=== PATIENT | male | born 1970 | race Caucasian/White ===

== ENCOUNTER 2017-01-03 00:20 | Emergency (ER) | payer MEDICARE, OTHER ==
[2017-01-03 02:52] LABS: HEMOGLOBIN 16.9 gm/dl (14.0-17.5); RED BLOOD COUNT 5.53 M/UL (4.20-5.50); WHITE BLOOD COUNT 7.3 K/UL (4.5-11.0)
[2017-01-03 03:11] LABS: BUN/CREATININE RATIO 12 (0-10)
== END 2017-01-03 06:20 | disposition home or self-care (01) ==
LOC: ER1 00:20
PROVIDERS: Family Medicine
DX: F41.9 Anxiety disorder, unspecified (principal); R06.00 Dyspnea, unspecified
CPT/HCPCS: 36415; 80053; 82550; 82553; 83874; 83880; 84484; 85025; 93005; 99285

== ENCOUNTER 2017-01-15 04:14 | Emergency (ER) | payer MEDICARE, OTHER ==
[2017-01-15 06:52] LABS: RED BLOOD COUNT 5.51 M/UL (4.20-5.50); WHITE BLOOD COUNT 9.1 K/UL (4.5-11.0)
[2017-01-15 07:28] LABS: BUN/CREATININE RATIO 13 (0-10)
== END 2017-01-15 09:50 | disposition home or self-care (01) ==
LOC: ER1 04:14
PROVIDERS: Family Medicine
DX: R10.9 Unspecified abdominal pain (principal)
CPT/HCPCS: 36415; 71020; 80053; 82550; 82553; 83690; 83874; 84484; 85025; 93005; 99284

== ENCOUNTER 2017-01-16 13:10 | Emergency (ER) | payer MEDICARE, OTHER ==
[2017-01-16 14:10] LABS: HEMOGLOBIN 17.1 gm/dl (14.0-17.5); RED BLOOD COUNT 5.56 M/UL (4.20-5.50)
[2017-01-16 14:51] LABS: BUN/CREATININE RATIO 14 (0-10)
== END 2017-01-16 17:30 | disposition home or self-care (01) ==
LOC: ER1 13:10
PROVIDERS: Emergency Medicine
DX: F41.9 Anxiety disorder, unspecified (principal); R00.0 Tachycardia, unspecified; Z90.49 Acquired absence of other specified parts of digestive tract; Z88.0 Allergy status to penicillin; Z79.899 Other long term (current) drug therapy
CPT/HCPCS: 36415; 71010; 80053; 82550; 82553; 83874; 84484; 85025; 85379; 93005; 99284

== ENCOUNTER 2017-01-17 20:43 | Emergency (ER) | payer MEDICARE, OTHER | END 2017-01-17 22:00 | disposition home or self-care (01) | LOC: ER1 20:43 | DX: F41.9 Anxiety disorder, unspecified (principal); Z90.49 Acquired absence of other specified parts of digestive tract; Z79.899 Other long term (current) drug therapy | CPT/HCPCS: 99283 ==

== ENCOUNTER 2017-01-19 14:10 | Emergency (ER) | payer MEDICARE, OTHER | END 2017-01-19 15:45 | disposition home or self-care (01) | LOC: ER1 14:10 | DX: F41.9 Anxiety disorder, unspecified (principal); Z79.899 Other long term (current) drug therapy | CPT/HCPCS: 99283 ==

== ENCOUNTER 2017-01-20 13:46 | Emergency (ER) | payer MEDICARE, OTHER | END 2017-01-20 16:05 | disposition home or self-care (01) | LOC: ER1 13:46 | DX: F41.9 Anxiety disorder, unspecified (principal); F17.210 Nicotine dependence, cigarettes, uncomplicated; Z79.899 Other long term (current) drug therapy | CPT/HCPCS: 99284 ==

== ENCOUNTER 2017-02-09 15:06 | Emergency (ER) | payer MEDICARE, OTHER | END 2017-02-09 16:01 | disposition home or self-care (01) | LOC: ER1 15:06 | DX: F41.9 Anxiety disorder, unspecified (principal); Z79.899 Other long term (current) drug therapy | CPT/HCPCS: 99283 ==

== ENCOUNTER 2017-02-10 16:53 | Emergency (ER) | payer MEDICARE, OTHER ==
[2017-02-10 23:26] LABS: HEMOGLOBIN 15.9 gm/dl (14.0-17.5); RED BLOOD COUNT 5.13 M/UL (4.20-5.50); WHITE BLOOD COUNT 7.4 K/UL (4.5-11.0)
[2017-02-10 23:42] LABS: BUN/CREATININE RATIO 10 (0-10)
== END 2017-02-11 00:45 | disposition home or self-care (01) ==
LOC: ER1 16:53
PROVIDERS: Family Medicine
DX: F41.9 Anxiety disorder, unspecified (principal); R07.9 Chest pain, unspecified; Z88.0 Allergy status to penicillin
CPT/HCPCS: 36415; 71020; 80053; 84484; 85025; 93005; 99285

== ENCOUNTER 2017-02-11 21:43 | Emergency (ER) | payer MEDICARE, OTHER | END 2017-02-12 10:30 | disposition home or self-care (01) | LOC: ER1 21:43 | DX: F41.9 Anxiety disorder, unspecified (principal); Z88.0 Allergy status to penicillin; R07.9 Chest pain, unspecified | CPT/HCPCS: 36415; 71020; 80053; 84484; 85025; 93005; 99283; 99285 ==

== ENCOUNTER 2017-02-13 02:30 | Emergency (ER) | payer MEDICARE, OTHER | END 2017-02-13 09:35 | disposition home or self-care (01) | LOC: ER1 02:30 | DX: F41.9 Anxiety disorder, unspecified (principal); Z90.49 Acquired absence of other specified parts of digestive tract | CPT/HCPCS: 93005; 99284 ==

== ENCOUNTER 2017-02-14 18:17 | Emergency (ER) | payer MEDICARE, OTHER ==
[2017-02-14 19:08] LABS: HEMOGLOBIN 16.3 gm/dl (14.0-17.5); RED BLOOD COUNT 5.3 M/UL (4.20-5.50); WHITE BLOOD COUNT 6.3 K/UL (4.5-11.0)
[2017-02-14 19:31] LABS: BUN/CREATININE RATIO 10 (0-10)
== END 2017-02-14 23:01 | disposition home or self-care (01) ==
LOC: ER1 18:17
PROVIDERS: Student in an Organized Health Care Education/Training Program
DX: F41.9 Anxiety disorder, unspecified (principal); Z90.49 Acquired absence of other specified parts of digestive tract
CPT/HCPCS: 36415; 71010; 80053; 82550; 82553; 84484; 85025; 93005; 99285

== ENCOUNTER 2017-02-16 11:10 | Emergency (ER) | payer MEDICARE, OTHER ==
[2017-02-16 12:44] LABS: HEMOGLOBIN 16.8 gm/dl (14.0-17.5); RED BLOOD COUNT 5.46 M/UL (4.20-5.50); WHITE BLOOD COUNT 6.7 K/UL (4.5-11.0)
[2017-02-16 13:00] LABS: BUN/CREATININE RATIO 14 (0-10)
== END 2017-02-16 17:30 | disposition home or self-care (01) ==
LOC: ER1 11:10
PROVIDERS: Physician Assistant Medical
DX: F41.9 Anxiety disorder, unspecified (principal); R06.02 Shortness of breath
CPT/HCPCS: 36415; 71010; 80053; 82550; 82553; 83874; 84443; 84484; 85025; 85379; 93005; 99285

== ENCOUNTER 2017-02-17 11:08 | Emergency (ER) | payer MEDICARE, OTHER ==
[2017-02-17 12:20] LABS: HEMOGLOBIN 17.5 gm/dl (14.0-17.5); RED BLOOD COUNT 5.69 M/UL (4.20-5.50); WHITE BLOOD COUNT 5.8 K/UL (4.5-11.0)
[2017-02-17 12:45] LABS: BUN/CREATININE RATIO 15 (0-10)
== END 2017-02-17 16:44 | disposition home or self-care (01) ==
LOC: ER1 11:08
PROVIDERS: Emergency Medicine
DX: F41.1 Generalized anxiety disorder (principal)
CPT/HCPCS: 36415; 71020; 80053; 82550; 82553; 83690; 83874; 84484; 85025; 85379; 93005; 99284

== ENCOUNTER 2017-02-18 13:28 | Emergency (ER) | payer MEDICARE, OTHER | END 2017-02-18 14:10 | disposition home or self-care (01) | LOC: ER1 13:28 | DX: F41.9 Anxiety disorder, unspecified (principal); Z88.0 Allergy status to penicillin | CPT/HCPCS: 93005; 99283 ==

== ENCOUNTER 2017-02-18 22:01 | Emergency (ER) | payer MEDICARE, OTHER | END 2017-02-19 04:10 | disposition left against medical advice (07) | LOC: ER1 22:01 | DX: Z53.21 Procedure and treatment not carried out due to patient leaving prior to being seen by health care provider (principal) ==

== ENCOUNTER 2017-02-21 17:01 | Emergency (ER) | payer MEDICARE, OTHER | END 2017-02-21 22:25 | disposition home or self-care (01) | LOC: ER1 17:01 | DX: F41.1 Generalized anxiety disorder (principal) | CPT/HCPCS: 99283 ==

== ENCOUNTER 2017-02-23 14:34 | Emergency (ER) | payer MEDICARE, OTHER | END 2017-02-23 15:30 | disposition home or self-care (01) | LOC: ER1 14:34 | DX: R06.81 Apnea, not elsewhere classified (principal); F41.9 Anxiety disorder, unspecified; Z90.49 Acquired absence of other specified parts of digestive tract | CPT/HCPCS: 93005; 96372; 99283; J2060 ==

== ENCOUNTER 2017-03-27 14:20 | Emergency (ER) | payer MEDICARE, OTHER ==
[2017-03-27 16:42] LABS: HEMOGLOBIN 16.9 gm/dl (14.0-17.5); RED BLOOD COUNT 5.51 M/UL (4.20-5.50); WHITE BLOOD COUNT 11.3 K/UL (4.5-11.0)
[2017-03-27 17:09] LABS: BUN/CREATININE RATIO 10 (0-10)
== END 2017-03-27 20:42 | disposition home or self-care (01) ==
LOC: ER1 14:20
PROVIDERS: Specialist/Technologist Athletic Trainer
DX: R06.00 Dyspnea, unspecified (principal); F41.9 Anxiety disorder, unspecified; I10 Essential (primary) hypertension; F17.220 Nicotine dependence, chewing tobacco, uncomplicated; Z79.899 Other long term (current) drug therapy
CPT/HCPCS: 36415; 71010; 80053; 82550; 82553; 83874; 84484; 85025; 93005; 99285

== ENCOUNTER 2017-03-28 13:33 | Emergency (ER) | payer MEDICARE, OTHER ==
[2017-03-28 15:55] LABS: HEMOGLOBIN 16.3 gm/dl (14.0-17.5); RED BLOOD COUNT 5.33 M/UL (4.20-5.50); WHITE BLOOD COUNT 8.8 K/UL (4.5-11.0)
[2017-03-28 16:16] LABS: BUN/CREATININE RATIO 14 (0-10)
== END 2017-03-28 16:53 | disposition home or self-care (01) ==
LOC: ER1 13:33
PROVIDERS: Physician Assistant
DX: R06.02 Shortness of breath (principal); F41.9 Anxiety disorder, unspecified; J44.9 Chronic obstructive pulmonary disease, unspecified; F17.210 Nicotine dependence, cigarettes, uncomplicated; Z79.899 Other long term (current) drug therapy
CPT/HCPCS: 36415; 71020; 80053; 82550; 82553; 83874; 84484; 85025; 93005; 99285

== ENCOUNTER 2017-03-29 11:55 | Emergency (ER) | payer MEDICARE, OTHER | END 2017-03-29 12:50 | disposition home or self-care (01) | LOC: ER1 11:55 | DX: F41.1 Generalized anxiety disorder (principal); F13.239 Sedative, hypnotic or anxiolytic dependence with withdrawal, unspecified | CPT/HCPCS: 80307; 99283; Q0162 ==

== ENCOUNTER 2021-05-02 17:45 | Emergency (ER) | payer MEDICARE, OTHER ==
[2021-05-02 20:35] LABS: HEMOGLOBIN 16.1 gm/dl (14.0-17.5); RED BLOOD COUNT 5.23 M/UL (4.20-5.50); WHITE BLOOD COUNT 8.1 K/UL (4.5-11.0)
[2021-05-02 20:48] LABS: BUN/CREATININE RATIO 11 (0-10)
== END 2021-05-02 21:01 | disposition home or self-care (01) ==
LOC: ER1 17:45
PROVIDERS: Preventive Medicine Occupational Medicine
DX: F41.9 Anxiety disorder, unspecified (principal)
CPT/HCPCS: 71045; 80053; 83690; 85025; 99283; Q0177

== ENCOUNTER 2021-07-15 21:16 | Emergency (ER) | payer MEDICARE, OTHER | END 2021-07-15 22:00 | disposition home or self-care (01) | LOC: ER1 21:16 | DX: F41.0 Panic disorder [episodic paroxysmal anxiety] (principal); Z90.49 Acquired absence of other specified parts of digestive tract | CPT/HCPCS: 99283 ==

== ENCOUNTER 2022-05-25 19:54 | Emergency (ER) | payer MEDICARE, OTHER ==
[2022-05-26 06:09] LABS: HEMOGLOBIN 17.3 gm/dl (14.0-17.5); RED BLOOD COUNT 5.51 M/UL (4.20-5.50); WHITE BLOOD COUNT 9.5 K/UL (4.5-11.0)
[2022-05-26 07:17] LABS: BUN/CREATININE RATIO 11 (0-10)
== END 2022-05-26 05:58 | disposition home or self-care (01) ==
LOC: ER1 19:54
PROVIDERS: Family Medicine
DX: R06.00 Dyspnea, unspecified (principal); F41.9 Anxiety disorder, unspecified; Z20.822 Contact with and (suspected) exposure to COVID-19; Z88.0 Allergy status to penicillin
CPT/HCPCS: 0240U; 71045; 80053; 80307; 81001; 82550; 82553; 84484; 85025; 93005; 99285